=== PATIENT | female | born 1975 | race African-American/Black ===

== ENCOUNTER 2016-11-30 20:09 | Emergency (ER) | payer MEDICAID ==
[~2016-11-30] VITALS: Ht 167.6 cm; Wt 136.1 kg
[2016-11-30 21:49] LABS: Basophils # (auto) 0 uL; Basophils % (auto) 0.4 % (0.0-2.0); CONDITION Y; DEFINITIVE SEE PRINTOUT; Eosinophils # (auto) 0.2 uL; SUSPECT SEE PRINTOUT; White Blood Cell 7.4 10^3/uL (4.4-10.8)
[2016-11-30 22:00] LABS: Albumin 3.2 g/dL (3.4-5.0); Anion Gap 7 (5-15); Blood Urea Nitrogen 5 mg/dL (7-18); Calcium 8.5 mg/dL (8.5-10.1); Carbon Dioxide 29 mmol/L (21-32); Chloride 104 mmol/L (98-107); Glucose 190 mg/dL (74-106); INR 0.95 (0.9-1.15); Magnesium 1.7 mg/dL (1.6-2.6); Partial Thromboplastin Time 26.4 sec (22.64-33.71); Potassium 3.6 mmol/L (3.5-5.1); Prothrombin Time 10.4 sec (9.37-12.3); Sodium 140 mmol/L (136-145)
[2016-11-30 22:02] LABS: Aspartate Aminotransferase 18 U/L (15-37); BUN/Creatinine Ratio 5.7; GFR African American 92 mL/min; GFR Non-African American 76 mL/min
[2016-11-30 22:07] LABS: Alkaline Phosphatase 74 U/L (45-117); Bilirubin, Total 0.4 mg/dL (0.2-1.0); Total Protein 7.7 g/dL (6.4-8.2)
[2016-11-30 22:13] LABS: B-Type Natriuretic Peptide 6.13 pg/mL (0-100)
[2016-11-30 22:14] LABS: Temperature: 22.9 C (20.0-25.0)
[2016-11-30 22:40] LABS: Eosinophils % (auto) 3.1 % (0.0-7.0); Hemoglobin 10.5 g/dL (12.2-16.2); Lymphocytes # (auto) 2.3 uL; Lymphocytes % (auto) 31.9 % (10.0-50.0); Mean Corpuscular Hemoglobin 21.7 pg (28.0-32.0); Mean Corpuscular Hgb Conc. 30.9 g/dL (32.0-36.0); Mean Corpuscular Volume 70.2 fL (80.0-100.0); Mean Platelet Volume 10.4 fL (7.4-10.4); Monocytes # (auto) 0.7 uL; Neutrophils # (auto) 4.1 uL; Neutrophils % (auto) 55.6 % (37.0-80.0); Platelet Count (auto) 212 10^3/uL (140-450)
[2016-11-30 22:42] LABS: Red Cell Distribution Width 20.8 % (11.6-16.0)
[2016-11-30 23:06] LABS: Burr Cells FEW; Ovalocytes FEW; Platelet Estimate Adequate
[2016-11-30 23:07] LABS: Anisocytosis Moderate; Giant Platelets Few; Hypochromia Moderate; Polychromasia Slight
[2016-11-30 23:57] LABS: Urine Bilirubin Negative (Negative); Urine Blood Negative /uL (Negative); Urine Ca Oxalate Crystal FEW (None Seen); Urine Color Yellow (Yellow); Urine Ketone Negative (Negative); Urine Mucus FEW (None Seen); Urine Nitrite Negative (Negative); Urine RBC 3 /hpf (0 - 4); Urine Squamous Epithelial Cell FEW /hpf (<5); Urine pH 5.5 (5.0-8.0)
[2016-11-30 23:58] LABS: Urine Glucose 2+ mg/dL (Normal)
[2016-12-01 08:36] VITALS: BP 173/98
[2016-12-01] MEDS ORDERED: LABETALOL HCL 5 MG/ML 4ML SYRINGE IV ONE (09:15)
[2016-12-01] MEDS ORDERED: FUROSEMIDE 20 MG/2 ML VIAL IV ONE (09:15)
== END 2016-12-01 10:45 | disposition home or self-care (01) ==
LOC: ER 20:11
DX: R60.9 Edema, unspecified (principal); E11.9 Type 2 diabetes mellitus without complications; R25.2 Cramp and spasm; I10 Essential (primary) hypertension; D50.9 Iron deficiency anemia, unspecified; E66.01 Morbid (severe) obesity due to excess calories; Z68.42 Body mass index [BMI] 45.0-49.9, adult; F17.210 Nicotine dependence, cigarettes, uncomplicated; Z90.49 Acquired absence of other specified parts of digestive tract
CPT/HCPCS: 36415; 71010; 80053; 81001; 81025; 83735; 83880; 84484; 85025; 85610; 85730; 93005; 96374; 96375; 99285; J1940; J3490

== ENCOUNTER 2016-12-22 06:41 | Emergency (ER) | payer MEDICAID ==
[~2016-12-22] VITALS: Ht 167.6 cm; Wt 131.5 kg
[2016-12-22 06:48] VITALS: BP 131/77
[2016-12-22 07:51] LABS: Urine Bilirubin Negative (Negative); Urine Color Yellow (Yellow); Urine Glucose TRACE mg/dL (Normal); Urine Ketone Negative (Negative); Urine Nitrite Negative (Negative); Urine RBC 2 /hpf (0 - 4); Urine Squamous Epithelial Cell MOD /hpf (<5); Urine Urobilinogen Normal (Negative); Urine pH 5.5 (5.0-8.0)
[2016-12-22 07:54] LABS: Basophils # (auto) 0 uL; Basophils % (auto) 0.4 % (0.0-2.0); CONDITION Y; DEFINITIVE SEE PRINTOUT; Eosinophils # (auto) 0.3 uL; Eosinophils % (auto) 3.8 % (0.0-7.0); Hematocrit 34.7 % (36.0-46.0); Hemoglobin 10.8 g/dL (12.2-16.2); Lymphocytes # (auto) 2.1 uL; Lymphocytes % (auto) 31.6 % (10.0-50.0); Mean Corpuscular Hemoglobin 22.8 pg (28.0-32.0); Mean Corpuscular Hgb Conc. 31.2 g/dL (32.0-36.0); Mean Platelet Volume 13.3 fL (7.4-10.4); Monocytes # (auto) 0.4 uL; Monocytes % (auto) 5.3 % (0.0-12.0); Neutrophils % (auto) 58.9 % (37.0-80.0); Platelet Count (auto) 244 10^3/uL (140-450); Potassium 3.3 mmol/L (3.5-5.1); SUSPECT SEE PRINTOUT; White Blood Cell 6.7 10^3/uL (4.4-10.8)
[2016-12-22 07:56] LABS: Red Cell Distribution Width 23.8 % (11.6-16.0)
[2016-12-22 07:58] LABS: Urine Blood 1+ /uL (Negative)
[2016-12-22 07:58] LABS: Albumin 3.4 g/dL (3.4-5.0); BUN/Creatinine Ratio 10.1; Calcium 9.3 mg/dL (8.5-10.1)
[2016-12-22 08:01] LABS: Bilirubin, Total 0.2 mg/dL (0.2-1.0)
[2016-12-22] MEDS ORDERED: POTASSIUM CHL 20 Meq TABLET PO ONE (08:30)
[2016-12-22] MEDS ORDERED: metFORMIN HYDROCHLORIDE 500 MG TAB PO ONE (08:30)
[2016-12-22 08:34] LABS: Anisocytosis Moderate; Burr Cells FEW; Giant Platelets Few; Hypochromia Moderate; Microcytosis Moderate; Ovalocytes FEW; Platelet Estimate Adequate
== END 2016-12-22 08:56 | disposition home or self-care (01) ==
LOC: ER 06:59
DX: N39.0 Urinary tract infection, site not specified (principal); E11.65 Type 2 diabetes mellitus with hyperglycemia; E66.9 Obesity, unspecified; Z68.42 Body mass index [BMI] 45.0-49.9, adult; F17.210 Nicotine dependence, cigarettes, uncomplicated; F15.10 Other stimulant abuse, uncomplicated; Z88.6 Allergy status to analgesic agent; Z90.49 Acquired absence of other specified parts of digestive tract
CPT/HCPCS: 36415; 80053; 80307; 81001; 81025; 85025